=== PATIENT | female | born 1955 | race American Indian/Alaskan Native ===

== ENCOUNTER 2016-11-11 07:37 | Day surgery (SDC) | payer OTHER ==
--- NOTE | 2016-11-11 08:14 | Anesthesia Day of Surgery ---
Anesthesia Day of Surgery - Day of Surgery Patient Examined: Yes Patient H&P Reviewed: Yes Patient is NPO: Yes
--- NOTE | 2016-11-11 08:15 | Anesthesia Consultation ---
Anesthesia Consult and Med Hx Date of service: 11/11/16 - Airway Anesthetic Teeth Evaluation: Dentures ROM Head & Neck: Adequate Mental/Hyoid Distance: Adequate Mallampati Class: Class II Intubation Access Assessment: Probably Good - Pulmonary Exam CTA: Yes - Cardiac Exam Cardiac Exam: RRR - Pre-Operative Health Status ASA Pre-Surgery Classification: ASA2 Proposed Anesthetic Plan: General, MAC
[2016-11-11] MEDS ORDERED: NACL 0.9% 1000 ML 1,000 ML IV SCH (09:00)
[2016-11-11] MEDS ORDERED: WATER FOR IRRIG STERILE IR ONE (09:29)
[2016-11-11] MEDS ORDERED: DIPRIVAN 10 MG/ML IV ONE ×3 (09:31→09:32)
--- NOTE | 2016-11-11 09:58 | Short Stay Summary ---
Short Stay Documentation - Allergies and Medications Current Medications: Allergies No Known Allergies Allergy (Verified 11/11/16 08:56) Active Medications Sodium Chloride (Nacl 0.9% 1000 Ml) 1,000 mls @ 50 mls/hr IV DIRECT PEACE Last Admin: 11/11/16 09:18 Dose: 50 mls/hr - Brief post op/procedure progress note Date of procedure: 11/11/16 Pre-op diagnosis: Colon cancer screening Post-op diagnosis: same (1.Internal hemorrhoids) Procedure: Colonoscopy Anesthesia: MAC Findings: as above Surgeon: MARIO PHAM Estimated blood loss: none Pathology: none Condition: stable - Disposition Condition at discharge: Stable Disposition: DISCHARGED TO HOME OR SELFCARE Short Stay Discharge Plan Activity: no restrictions Weight Bearing Status: Full Weight Bearing Diet: regular
[2016-11-11 10:17] VITALS: BP 133/88
--- NOTE | 2016-11-11 10:22 | Post Anesthesia Evaluation ---
- Post Anesthesia Evaluation Patient Participated: Yes Airway Patent: Yes Stable Respiratory Function: Yes Nausea/Vomiting: No Temp > 96.8F: Yes Pain Manageable: Yes Adequeate Hydration: Yes Anesthesia Complications: No Block Receding Appropriately: Not Applicable Patient on Ventilator: No
== END 2016-11-11 07:38 | disposition home or self-care (01) ==
LOC: GIO 07:37
PROVIDERS: ATTEND Internal Medicine Gastroenterology
DX: Z12.11 Encounter for screening for malignant neoplasm of colon (principal); K64.0 First degree hemorrhoids; B19.20 Unspecified viral hepatitis C without hepatic coma; E66.9 Obesity, unspecified; Z68.35 Body mass index [BMI] 35.0-35.9, adult; Z98.890 Other specified postprocedural states; Z87.891 Personal history of nicotine dependence; Z80.42 Family history of malignant neoplasm of prostate; Z80.1 Family history of malignant neoplasm of trachea, bronchus and lung; Z80.0 Family history of malignant neoplasm of digestive organs
CPT/HCPCS: G0105; J2704; J7030

== ENCOUNTER 2017-07-20 11:14 | Emergency (ER) | payer OTHER ==
[2017-07-20 12:32] VITALS: BP 135/81
--- NOTE | 2017-07-20 14:10 | XRay Report ---
LEFT FEMUR: HISTORY: pain AP and lateral views of the femur demonstrate normal mineralization and contours for this patient's age. No destructive changes are noted and the adjacent soft tissues are normal. IMPRESSION: Normal left femur.
--- NOTE | 2017-07-20 14:11 | XRay Report ---
RIGHT FOOT, 2 views: History: Pain. The bony architecture is intact. Bony alignment is normal. No soft tissue abnormalities are seen. The joint spaces appear preserved. A moderate plantar spur is noted. IMPRESSION: Plantar spur.
--- NOTE | 2017-07-20 14:11 | XRay Report ---
RIGHT TIBIA/FIBULA: History: Pain, injury AP and lateral views of the right tibia/fibula demonstrate normal mineralization and contours for this patient's age. No destructive changes or fracture. There is mild distal soft tissue swelling or edema. IMPRESSION: Unremarkable right tibia/fibula. Mild soft tissue swelling or edema.
--- NOTE | 2017-07-20 17:30 | Emergency Department Report ---
ED Lower Extremity HPI - General Chief Complaint: Extremity Injury, Lower Stated Complaint: LIBRARY SHELF FELL ON LEGS & FOOT Source: patient Mode of arrival: Ambulatory Limitations: No Limitations - History of Present Illness Initial Comments: 61-year-old female presents with complaint of right great toe pain right figueroa pain and left knee pain status post accidental injury involving a storage/book shelf. She states she was in a storage unit moving around items on a shelf when the shelf fell and hit her left knee and her right foot. States she fell back on her buttocks denies any head injury or neck injury. Was able to get up on her own and ambulate immediately afterward. States that this was on camera and storage unit. This occurred approximately 3 days ago on Tuesday. Patient states she had some swelling of her toe and a bruise to her left knee. Patient is ambulatory denies any fevers chills denies any other injuries whatsoever. Patient denies any head injury what so ever. Patient is awake alert and oriented 3. MD Complaint: foot injury Onset/Timin -: days(s) Injury: Leg: Right, Foot: Right Type of Injury: blunt Place: home Severity: mild Severity scale (0 -10): 5 Worsens With: palpation Context: direct blow (patient states that a shelf fell on her foot) Associated Symptoms: swelling, ambulatory - Related Data Previous Rx's Medication Instructions Recorded Last Taken Type Ibuprofen [Motrin] 800 mg PO Q8HR PRN #30 tablet 07/20/17 Unknown Rx Allergies Allergy/AdvReac Type Severity Reaction Status Date / Time No Known Allergies Allergy Verified 11/11/16 08:56 ED Review of Systems ROS: Stated complaint: LIBRARY SHELF FELL ON LEGS & FOOT Other details as noted in HPI Constitutional: denies: chills, fever Eyes: denies: eye pain, eye discharge, vision change ENT: denies: ear pain, throat pain Respiratory: denies: cough, shortness of breath, wheezing Cardiovascular: denies: chest pain, palpitations Endocrine: no symptoms reported Gastrointestinal: denies: abdominal pain, nausea, diarrhea Genitourinary: denies: urgency, dysuria, discharge Musculoskeletal: as per HPI. denies: back pain, joint swelling, arthralgia Skin: denies: rash, lesions Neurological: denies: headache, weakness, paresthesias Psychiatric: denies: anxiety, depression Hematological/Lymphatic: denies: easy bleeding, easy bruising ED Past Medical Hx - Past Medical History Previous Medical History?: No - Surgical History Past Surgical History?: No - Social History Smoking Status: Never Smoker Substance Use Type: None - Medications Home Medications: Home Medications Medication Instructions Recorded Confirmed Last Taken Type Ibuprofen [Motrin] 800 mg PO Q8HR PRN #30 tablet 07/20/17 Unknown Rx ED Physical Exam - General Limitations: No Limitations General appearance: alert, in no apparent distress - Head Head exam: Present: atraumatic, normocephalic - Eye Eye exam: Present: normal appearance, PERRL, EOMI - ENT ENT exam: Present: mucous membranes moist - Neck Neck exam: Present: normal inspection - Respiratory Respiratory exam: Present: normal lung sounds bilaterally. Absent: respiratory distress - Cardiovascular Cardiovascular Exam: Present: regular rate, normal rhythm. Absent: systolic murmur, diastolic murmur, rubs, gallop - GI/Abdominal GI/Abdominal exam: Present: soft, normal bowel sounds - Extremities Exam Extremities exam: Present: normal inspection - Expanded Lower Extremity Exam Right Knee exam: Present: normal inspection, full ROM Lower Leg exam: Present: normal inspection, full ROM Ankle exam: Present: normal inspection, full ROM Foot/Toe exam: Present: normal inspection, full ROM Neuro vascular tendon exam: Present: no vascular compromise (distal dorsalis pedis and posterior tibial pulses intact right foot) Gait: Positive: observed and normal 1 - Small contusion here no paronychia and no cellulitis no laceration - Back Exam Back exam: Present: normal inspection, full ROM - Neurological Exam Neurological exam: Present: alert, oriented X3, CN II-XII intact, normal gait - Psychiatric Psychiatric exam: Present: normal affect, normal mood - Skin Skin exam: Present: warm, dry, intact, normal color. Absent: rash ED Course Vital Signs 07/20/17 12:25 Temperature 98.1 F Pulse Rate 63 Blood Pressure 135/81 O2 Sat by Pulse 97 Oximetry ED Lower Extremity MDM - Medical Decision Making A/P: Toe contusion, left knee contusion 1-x-ray show no fractures. Distal pulses and sensation intact on exam. He should ambulatory without difficulty. RICE therapy, Nestor wrap left knee 2-Motrin when necessary 3-follow-up with primary care Critical care attestation.: If time is entered above; I have spent that time in minutes in the direct care of this critically ill patient, excluding procedure time. ED Disposition Clinical Impression: Contusion of toe of right foot Qualifiers: Encounter type: initial encounter Toe: great toe Damage to nail status: without damage Qualified Code(s): S90.111A - Contusion of right great toe without damage to nail, initial encounter Contusion of left knee Qualifiers: Encounter type: initial encounter Qualified Code(s): S80.02XA - Contusion of left knee, initial encounter Disposition: TO HOME OR SELFCARE Is pt being admited?: No Does the pt Need Aspirin: No Condition: Stable Instructions: Contusion in Adults (ED), Foot Contusion (ED), Knee Pain (ED), RICE Therapy (ED) Prescriptions: Ibuprofen [Motrin] 800 mg PO Q8HR PRN #30 tablet PRN Reason: Pain Referrals: [facility] [Outside] - 3-5 Days [facility] [Outside] - 3-5 Days [facility] [Provider Group] - 3-5 Days Forms: Accompanied Note, Work/School Release Form(ED) Time of Disposition: 17:43
[2017-07-20] MEDS ORDERED: MOTRIN PO ONE (17:42)
[2017-07-20] MEDS ORDERED: MOTRIN ONE (17:45)
== END 2017-07-20 17:53 | disposition home or self-care (01) ==
LOC: ED 11:14
DX: S90.111A Contusion of right great toe without damage to nail, initial encounter (principal); S80.02XA Contusion of left knee, initial encounter; W20.8XXA Other cause of strike by thrown, projected or falling object, initial encounter; Y93.89 Activity, other specified; Y92.89 Other specified places as the place of occurrence of the external cause; Y99.8 Other external cause status
CPT/HCPCS: 99283